=== PATIENT | male | born 1945 | race Caucasian/White ===

== ENCOUNTER 2021-07-11 07:48 | Day surgery (SDC) | payer OTHER ==
[2021-07-08 15:47] LABS: Hematocrit 36.3 % (39.6-49.0); Lymphocytes % 17.6 % (15.3-44.8); MPV 8.7 fL (7.6-11.3); RBC Red Blood Cell Count 4.05 M/uL (4.33-5.43)
[2021-07-08 16:03] LABS: Albumin 3.7 g/dL (3.4-5.0); Bilirubin Total 0.5 mg/dL (0.2-1.0); Potassium 4.3 mmol/L (3.5-5.1); Protein, Total 7.9 g/dL (6.4-8.2)
--- NOTE | 2021-07-09 11:25 | EKG ---
Test Date: 2021-07-08 Test Time: 14:17:11 Global President: ALISON MEASUREMENT RESULTS: Intervals: Rate: 78 MT: 144 QRSD: 130 QT: 418 QTc: 476 [place]: P: 59 MT: 144 QRS: 79 T: 97 INTERPRETIVE STATEMENTS: Normal sinus rhythm Right bundle branch block Abnormal ECG No previous ECG available for comparison Electronically Signed On 07-09-21 11:22:24 DIE DEVELOPER by Florian Smith
[2021-07-11] MEDS ORDERED: NA CHLORIDE 0.9% 1,000 ML ONE (08:21)
[2021-07-11] MEDS ORDERED: propofoL 200 MG/20 ML VIAL IV ONE (08:44)
[2021-07-11] MEDS ORDERED: LIDOCAINE 2% MPF 5 ML VIAL ONE (08:44)
[2021-07-11] MEDS ORDERED: dexAMETHasone 10 MG/ML VIAL ONE (08:44)
[2021-07-11] MEDS ORDERED: MIDAZOLAM HCL 2 MG/2 ML INJ ONE (08:44)
[2021-07-11] MEDS ORDERED: ROCURONIUM 50 MG/5 ML VIAL IV ONE (08:44)
[2021-07-11] MEDS ORDERED: FENTANYL CITR 250 MCG/5 ML ONE (08:44)
[2021-07-11] MEDS ORDERED: LIDOCAINE 1% W/EPI 1:100,000 MDV 20 ML VIAL ONE (09:06)
[2021-07-11] MEDS: OXYMETAZOLINE HCL 0.05% 15ML NAS ONE ×2 (09:20→09:36)
[2021-07-11] MEDS ORDERED: CHLORHEXIDINE 0.12% 473ML BOT MM ONE (10:01)
[2021-07-11] MEDS: CLINDAMYCIN 900MG/D5W 900 MG/50 ML IVPB IV ONE ×2 (10:04→10:05)
[2021-07-11] MEDS ORDERED: EPHEDRINE SULF 50 MG/ML VIAL ONE (10:22)
--- NOTE | 2021-07-11 10:51 | P.BOP ---
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
[2021-07-11] MEDS ORDERED: ONDANSETRON 4 MG/2 ML VIAL ONE (11:27)
[2021-07-11 12:04] VITALS: TEMP 97.4; O2SAT 98
[2021-07-11] MEDS ORDERED: ACETAMINOPHEN 325 MG TABLET ONE (12:16)
[2021-07-11 13:17] VITALS: BP 135/65
--- NOTE | 2021-07-12 10:27 | OP ---
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 Procedure: Right partial glossectomy. Indication For Procedure: The patient presented to the ENT clinic with complaints of tongue pain. H is exam demonstrated a small exophytic area and an adjacent small ulceration on the lateral surface o f the right oral tongue. A biopsy was performed in the clinic, which returned with at least squamous cell in situ. The risks, benefits, and alternatives were discussed. The patient underwent a non contrasted CT of t he neck due to history of chronic kidney failure. This CT failed to demonstrate any significant raven l metastasis and the primary site was not visualized on the scan. Preoperative discussion included the possibility of invasive component and the possible need for neck dissection if significant invasive component was noted. After careful discussion with the patient, his and son, the family elected to forego any neck dissection regardless of the results of the f rozen section and would defer any additional treatment until the full pathology result became availab le. Therefore, no neck dissection was arranged. Description Of Procedure: The patient was brought to the operating room. He was placed under genera l anesthesia via nasotracheal intubation. The head of bed was turned 45 degrees towards the right for better exposure of the right oral cavity. A mouth gag was placed to open the mouth and oral cavity was prepared with irrigation of chlorhexidine Peridex mouthwash for several minutes. After suctionin g, a 0 silk suture was placed through the midline of the tip of the tongue and used to aid in retract ion and extrusion of the tongue for better exposure. A [place] cheek protractor was positioned wit h the mouth gag for retraction of the right oral commissure resulting in good exposure of the prior b iopsy site. On palpation, there was a small irregular raised area which was firm but not ulcerated n or friable. A 5 mm mucosal margin was designed circumferentially around this lesion. Needlepoint Atul vie electrocautery was used to incise through the mucosa along this planned incision. A suture was p laced at the superior most aspect to indicate 12 o'clock for pathologic orientation. The Bovie elect rocautery was then used to incise through the muscular layer, leaving an adequate soft tissue margin cuff on palpation of the musculature. Once the lesion was completely , the specimen was se nt to Pathology for frozen section analysis. The surgical site was inspected and needlepoint cautery applied to small areas of minimal oozing. The site was then covered with a wet Ray-Pily until result s of the frozen section became available in intraoperative consultation with the pathologist. The de ep and peripheral margins appeared negative for any dysplastic cells. There was chronic inflammation and biopsy site changes with some scant areas of dysplasia, but no immediately apparent evidence of invasive carcinoma. Upon return to the operating room, the surgical site was inspected and decision was made for linear primary closure which was performed using 4-0 chromic suture on a taper needle an d performed in an interrupted fashion. The wound appeared well approximated. The cheek retractor an d mouth gag were removed. The orientation suture and retracting suture were removed from the tongue. The oral cavity was thoroughly suctioned and the patient was returned to care of Anesthesia for pratik kening and extubation in the operating room, which proceeded without difficulty. Disposition: The patient will be discharged home later today in care of his family with appropriate soft diet and the pain medication. They will follow up with Dr. Jacobs in 2 and half weeks for revi ew of final pathology results and further evaluation and management and evaluation of wound healing. ROLAND/SCOTTY Voice ID: [id number] Report ID: [id number]
== END 2021-07-11 12:45 | disposition home or self-care (01) ==
LOC: OR 07:48
PROVIDERS: ATTEND Otolaryngology
PROC: 0CB7XZZ Excision of Tongue, External Approach (ICD-10-PCS; principal; 2021-07-11 09:30)
DX: D00.07 Carcinoma in situ of tongue (principal); R93.89 Abnormal findings on diagnostic imaging of other specified body structures; Z20.822 Contact with and (suspected) exposure to COVID-19
CPT/HCPCS: 93005 ×2; 85025; 36415; 82947 ×2; 88331; 88332; 88305; 80053; 41599; U0003; J2704; J2250; J3010; J1100; J7030; J2405

== ENCOUNTER 2023-04-26 09:15 | Day surgery (SDC) | payer OTHER ==
[2023-04-23 13:07] LABS: Absolute Lymphocytes (CBC) 1.5 K/uL (0.7-4.9); Hematocrit 35.6 % (39.6-49.0); Lymphocytes % 31.9 % (15.3-44.8); MCV 91.4 fL (80-100); MPV 7.7 fL (7.6-11.3); Platelets 168 thou/uL (152-406)
[2023-04-23 13:24] LABS: Albumin 3.4 g/dL (3.4-5.0); Bilirubin Direct 0.1 mg/dL (0-0.2); Bilirubin Indirect, Calculated 0.3 mg/dL (0.2-0.8); Bilirubin Total 0.4 mg/dL (0.2-1.0); Potassium 4.5 mEq/L (3.5-5.1); Protein, Total 7.1 g/dL (6.4-8.2)
--- NOTE | 2023-04-23 13:24 | RAD REPORT ---
[facility] DES[facility]/23/2023 1:03 pm CLINICAL HISTORY: pre procedural screening. Hypertension COMPARISON: No comparisons TECHNIQUE: PA and lateral views of the chest. FINDINGS: The lungs are clear. No pneumothorax or effusion. The cardiomediastinal contours are unre markable. IMPRESSION: No acute cardiopulmonary process.
[2023-04-26] MEDS: NA CHLORIDE 0.9% 1,000 ML ONE (09:35)
[2023-04-26] MEDS: CEFOXITIN SODIUM 1 GM/VIAL ONE ×2 (09:59→10:35)
[2023-04-26] MEDS ORDERED: FENTANYL CITR 100 MCG/2 ML ONE (10:29)
[2023-04-26] MEDS ORDERED: propofoL 200 MG/20 ML VIAL IV ONE (10:30)
[2023-04-26] MEDS ORDERED: MIDAZOLAM HCL 2 MG/2 ML INJ ONE (10:31)
[2023-04-26] MEDS ORDERED: ROCURONIUM 50 MG/5 ML VIAL IV ONE (10:31)
[2023-04-26] MEDS ORDERED: LIDOCAINE 2% MPF 5 ML VIAL ONE (10:32)
[2023-04-26] MEDS ORDERED: ONDANSETRON 4 MG/2 ML VIAL ONE (10:32)
--- NOTE | 2023-04-26 11:22 | P.BOP ---
Preoperative diagnosis: Acute cholecystitis, symptomatic cholelithiasis Postoperative diagnosis: same, supurative cholecystitis, umbilical hernia Primary procedure: 1. Laparoscopic cholecystectomy Secondary procedure: 2. Umbilical hernia repair Estimated blood loss: <10cc Specimen: gb Findings: as above, Anesthesia: General Complications: None Drain(s): HERMILA drain Transferred to: Recovery Room Condition: Good
[2023-04-26] MEDS ORDERED: NEOSTIGMINE 1 MG/ML -10 ML VIAL ONE (11:35)
[2023-04-26] MEDS ORDERED: GLYCOPYRROLATE 0.2 MG/ML SYR ONE (11:37)
[2023-04-26] MEDS: HYDROMORPHONE HCL 1 MG/ML INJ ONE ×2 (11:41→11:55)
[2023-04-26] MEDS ORDERED: CODEINE 30MG/APAP 300MG TAB ONE (13:07)
--- NOTE | 2023-04-26 23:15 | OP ---
Date of Procedure: 04/26/2023 Surgeon: Ramon Fontenot MD Preoperative Diagnoses: Acute cholecystitis, symptomatic cholelithiasis. Postoperative Diagnoses: Acute cholecystitis, symptomatic cholelithiasis, suppurative cholecystitis, and also umbilical hernia. Procedures: 1.Laparoscopic cholecystectomy. 2.Umbilical hernia repair. Estimated Blood Loss: Less than 10 mL. Specimen: Gallbladder. Findings: Patient has an umbilical hernia. The patient has multiple adhesions. The patient has a m idline incision from xiphoid all the way down to lower ventral region from previous vascular surgerie s. The area of the gallbladder looks inflamed and also there is some suppurative content of the gall bladder. Complications: None. Estimated Blood Loss: Less than 10 disease. Drains: HERMILA #10. Complications: None. Indications: This is the case of a 77-year-old patient who came to us with on and off abdominal pain . Have been seen by the primary doctor, finally sent to us for a laparoscopic possible open cholecys tectomy with benefits, alternatives, and risks including, but not limited to infection, bleeding, dam age to adjacent structures, anesthesia complication, choledocholithiasis, bile leak, pancreatitis, [place] , and even . He also understands in his case an issue. He has a midline incision, p revious laparotomy. He is also on blood thinners. At this time, the benefit outweighed the risk. S o, the GI doctor sent him to our office and we proposed the surgery, and after understanding all the benefits, alternatives, and risks, they signed a consent. Description Of Procedure: The patient was brought to the operating room, placed in supine position. Anesthesia was without complication. Abdominal area was prepped and draped in usual sterile fashion . Local anesthesia was applied followed by sharp incision of the skin in the supraumbilical region. Incision was carried down to fascia. We noticed the patient to have umbilical hernia. Carefully, t he omentum was removed from that area and retracted back into the abdominal cavity since it was not i ncarcerated and after inspecting and making sure it was viable. The fascial edges were cleaned. Has son trocar was carefully placed in after putting Vicryl #1 inside of the fascia. We obtained pneumop eritoneum. We right upper quadrant, found areas where we can put 5 mm trocar, 3 of them i n the right upper quadrant under direct visualization. The gallbladder looked inflamed. A grasper w as placed in the fundus of the gallbladder, another one in the infundibulum, retracting the gallbladd er in the inferolateral fashion, exposing the triangle of Calot and obtaining critical view. Cystic duct and cystic artery were clearly identified circumferentially and connection between those and the gallbladder was clearly identified. I proceeded to ligate the cystic duct first, 3 clips proximal, 1 clip distal and when we cut it, we noticed the patient had some purulent discharge coming from the gallbladder site that contained just a finding. The clip is there. So at that moment, I proceeded t o remove cystic artery and then clamped it with 3 clips proximal, 1 clip distal, ligation in middle. A small little branch of the cystic artery was also ligated. Hepatic arteries and common bile duct were protected at all times. The gallbladder was removed from liver using Bovie cauterize r and removed from abdominal cavity using an EndoCatch through the umbilical incision. The area was inspected. After irrigation and suction, clips were intact. No bile leak. No bleeding. I left a J P drain in that region due to this inflammatory and infection in that region. This HERMILA drain was exit ing through one of trocar sites, secured in place with 3-0 nylon. The area was inspected. No bile l eak. No bleeding. At that moment, I proceeded to remove the trocars under direct vision, deflated p neumoperitoneum, closed the umbilical hernia with #1 Vicryl. Irrigated subcutaneous tissue, closed t hat with 3-0 chromic and the skin with jony. Sponge count, instrument count was correct. Patient tolerated the procedure well. Patient was sent to Recovery in stable condition. Disposition: Home. Activity: As tolerated. No heavy lifting. Condition: Stable. Follow up in my office in 1 week, call for appointment [phone]. Medication will be called to his ph armacy. HERMILA drain record output q.24 hours. Keep area clean and dry. HM/MODL Voice ID: [id number] Report ID: [id number]
== END 2023-04-26 13:35 | disposition home or self-care (01) ==
LOC: OR 09:15
PROVIDERS: ATTEND Surgery
PROC: 0FT44ZZ Resection of Gallbladder, Percutaneous Endoscopic Approach (ICD-10-PCS; principal; 2023-04-26 11:00)
DX: K80.12 Calculus of gallbladder with acute and chronic cholecystitis without obstruction (principal); R10.11 Right upper quadrant pain; K42.9 Umbilical hernia without obstruction or gangrene
CPT/HCPCS: 93005; 85025; 80048; 36415; 82947 ×2; 80076; 88302; 88304; 83690; 71046; 47562; J2704; J2710; J2001; J2250; J3010; J1170; J0694; J2405; J7030